=== PATIENT | male | born 1965 | race Caucasian/White ===

== ENCOUNTER 2018-07-16 02:35 | Emergency (ER) | payer OTHER, SELFPAY ==
[2018-07-16 02:39] VITALS: BP 146/69; PULSE 71; RESP 16; TEMP 36.2; O2SAT 100
--- NOTE | 2018-07-16 02:53 | ED.GENADUL_ITS ---
Discharge Plan Disposition Patient Disposition: HOME Condition: Good Discharge Details Chief Complaint: Urinary Clinical Impression: Right distal ureteral calculus Primary Care Provider: Marry Perez ED Provider: Richard Reinoso Tennyson Meds and New Rx's Prescriptions: New hydrocodone-acetaminophen 5-325 mg tablet 1 tab PO Q4H PRN (Reason: pain) Qty: 10 RF: 0 Continued atorvastatin 40 mg Tablet 1 mg PO HS RF: 0 aspirin [Aspir-81] 81 mg Tablet,Delayed Release (Dr/Ec) 81 mg PO DAILY RF: 0 tramadol 50 mg Tablet 50 mg PO DAILY RF: 0 Vitamin B-12 50 mcg Tablet 50 mcg PO DAILY RF: 0 tamsulosin [Flomax] 0.4 mg Capsule RF: 0 metformin 1,000 mg Tablet 1,000 mg PO BID RF: 0 lisinopril 5 mg Tablet 5 mg PO BID RF: 0 Discharge Instructions Instructions: Ureteral Stones (ED) Additional Instructions: You do have a kidney stone on the right side. It is small enough that it should pass on its own. Strain your urine over the weekend so you may catch the stone when you pass it. You may use ibuprofen for pain. You may also use your Ultram if you need to. If neither works use the hydrocodone/acetaminophen. Do not take Ultram while taking hydrocodone/acetaminophen. Follow-up with primary care next week if you are still having symptoms. Return to the emergency department if you develop fever, uncontrolled pain, persistent vomiting. Referrals: Primary Care Provider [Outside] Medical Decision Making Bladder scan is less than 100. Patient still feels like he needs to urinate. He has acute onset of right flank pain radiating into the buttock and testicle. I suspect this is kidney stone. He is quite uncomfortable. Will establish a line and start fluids. Will check laboratory studies. We will treat with Toradol and morphine. Will obtain CT stone study. 4:30 - Patient laboratory studies for the most part unremarkable. His white count is minimally elevated. His hemoglobin is slightly low. Chemistries are fine other than glucose being high. CT scan was obtained and does show a 2 mm stone at the UVJ with some hydronephrosis. Patient is feeling much better after medications. We will plan a second dose of morphine and discharge home with Vicodin and Motrin. He is already on Flomax. Hopefully will pass the stone in the next few days as it is only 2 mm. Pending urinalysis as he has been unable to urinate as of yet. 5:30 -urinalysis with blood only. There are white cells present but there are also many epithelial cells. I do not suspect infection. Will discharge home to follow-up with primary care next week if he has not passed the stone over the weekend. Return to ED if he develops fever, uncontrolled pain, persistent vomiting. I did review the patient in the [place] prescription monitoring site. [facility] He receives no other narcotic medications. Will instruct patient not to use tramadol if he requires Vicodin for the kidney stone. Tramadol is for his chronic back pain. We did discuss narcotic use. State information sheet given. Informed consent signed. HPI General Mode of arrival: ambulatory . Date/Time Provider Initiated Documentation: 07/16/18 02:49 . Limitations to Documentation: no limitations . Information obtained by: patient . HPI Narrative: Patient presents to ED with right flank pain that radiates into the right buttock and testicle. He has had chronic right-sided back pain for years. This pain seems different. It is severe. He describes it as feeling like his side is going to explode. He has urinary urgency and frequency but is unable to produce significant amount of urine. He has had nausea and vomiting. He has had some loose stool. He has not noticed blood in his urine. He has had no fevers or chills. He denies previous history of kidney stones. He has been unable to sleep all night and finally comes in for evaluation this morning. Related Data Home Medications Medication Instructions Recorded Confirmed Vitamin B-12 50 mcg PO DAILY 07/16/18 07/16/18 aspirin [Aspir-81] 81 mg PO DAILY 07/16/18 07/16/18 atorvastatin 1 mg PO HS 07/16/18 07/16/18 hydrocodone-acetaminophen 1 tab PO Q4H PRN #10 tab 07/16/18 lisinopril 5 mg PO BID 07/16/18 07/16/18 metformin 1,000 mg PO BID 07/16/18 07/16/18 tamsulosin [Flomax] 07/16/18 tramadol 50 mg PO DAILY 07/16/18 07/16/18 Previous Rx's Medication Instructions Recorded hydrocodone-acetaminophen 1 tab PO Q4H PRN #10 tab 07/16/18 Allergies Allergy/AdvReac Type Severity Reaction Status Date / Time atropine [From Simetyl] Allergy Intermediate Psychosis Unverified 07/16/18 02:44 belladonna alkaloids Allergy Intermediate Psychosis Unverified 07/16/18 02:44 [From Simetyl] hyoscyamine [From Simetyl] Allergy Intermediate Psychosis Unverified 07/16/18 02:44 loratadine [From Tavist ND] Allergy Intermediate Psychosis Unverified 07/16/18 02:44 scopolamine [From Simetyl] Allergy Intermediate Psychosis Unverified 07/16/18 02:44 simethicone [From Simetyl] Allergy Intermediate Psychosis Unverified 07/16/18 02:44 General Stated Complaint: Urinary SAUL: 3 Review of Systems Review of Systems 01/31 Review of Systems completed and is negative except as stated above in HPI (Systems reviewed: Const, Eyes, ENT, Resp, CV, GI, , MSK, Skin, Neuro) [facility] Medical History Diabetes (Chronic) High cholesterol (Chronic) Surgical History History of left knee replacement (Acute) Social History Smoking/Tobacco Use Status: Never Additional Social history: pt is not alone to assess privately Exam Narrative Exam Narrative: 1. Const: WDWN male, uncomfortable lying on stretcher. 2. Eyes: No conjunctival injection or scleral icterus. 3. ENT: NC/AT. No facial swelling or tenderness. Mucous membranes moist. 4. Neck: Supple without adenopathy. Trachea midline. 5. CVS: +S1/S2, No murmurs or gallops. 6. RESP: Unlabored respiratory effort. Clear to auscultation bilaterally. No wheezes rales or rhonchi 7. GI: Soft, NT/ND, No hepatosplenomegaly. No guarding or rebound. 8. MSK: No C/C/E present. No deformity or tenderness noted. 9. Skin: Warm, Dry. 10. Neuro: A&O x3. gift officer II-XII grossly intact. Sensation grossly intact, no focal neurologic deficits. 5/5 strength and normal sensation in LE. 11. : No CVAT. No hernia. No testicular swelling or tenderness. Course Vital Signs Temperature 97.1 F L 07/16/18 02:39 Pulse 71 07/16/18 02:39 Respiratory Rate 16 07/16/18 02:39 Blood Pressure 146/69 H 07/16/18 02:39 Pulse Oximetry 100 07/16/18 02:39 Temperature 97.1 F L 07/16/18 02:39 Temperature Source Skin 07/16/18 02:39 Pulse 71 07/16/18 02:39 Respiratory Rate 16 07/16/18 02:39 Respiratory Effort Non-Labored 07/16/18 02:42 Blood Pressure 146/69 H 07/16/18 02:39 Pulse Oximetry 100 07/16/18 02:39 Pain Level 10 07/16/18 02:48
[2018-07-16] MEDS: Ketorolac 30 MG/ML VIAL IVP (03:26)
[2018-07-16] MEDS: Normal Saline 1,000 ML 1000 ML IV (03:26)
[2018-07-16 03:37] LABS: Abs Immature Grans 0.03 k/cumm (0.0-0.09); Absolute Basophil Count 0.02 k/cumm (0.0-0.2); Absolute Eosinophil Count 0.05 k/cumm (0.0-0.7); Absolute Lymphocyte Count 1.42 k/cumm (1.2-3.4); Absolute Monocyte Count 0.46 k/cumm (0.11-0.7); Basophils % 0.2; Eosinophils % 0.4; HCT 39.9 % (40.0-50.0); HGB 13.3 g/dL (13.5-17.5); Immature Grans % 0.3; Lymphocytes % 12.1; Mean Corp. HGB Concentration 33.3 g/dL (32.0-36.0); Mean Corpuscular Hemoglobin 26.5 pg (27.0-33.0); Mean Corpuscular Volume 79.5 fL (80-95); Mean Platelet Volume 11.3 fL (8.0-11.0); Monocytes % 3.9; Neutrophils % 83.1; Platelet Count 239 x1000/uL (130-400); RBC 5.02 m/cumm (4.50-6.00); RBC Distribution Width 13.9 % (11.8-14.1); White Blood Cell Count 11.75 k/cumm (4.4-10.8)
--- NOTE | 2018-07-16 03:40 | DI.CT_ITS ---
SYMPTOMS/DIAGNOSIS: RT FLANK PAIN CT SCAN OF THE ABDOMEN AND PELVIS: Renal colic CT was performed according to protocol. There is a 4 mm stone at the right ureterovesical junction causing mild hydronephrosis. No evidence of nephrolithiasis is present. The urinary bladder is intact. The reproductive organs are unremarkable. No other acute abdominal or pelvic organ abnormality is identified. The bones show degenerative changes. IMPRESSION: 4 mm right UVJ stone causing mild hydronephrosis.
[2018-07-16 03:42] LABS: Absolute Neutrophil Count 9.76 k/cumm (1.2-6.7)
[2018-07-16] MEDS: Ondansetron 4 MG/2 ML VIAL IVP (03:50)
[2018-07-16] MEDS: MORPHine 10 MG/ML VIAL 5 MG IVP ×2 (03:53→05:02)
[2018-07-16 03:54] LABS: Anion Gap 12.5 mmol/L (3-11); BUN 14 mg/dL (7-18); CO2 24.5 mmol/L (21.0-32.0); CREATININE 1.35 mg/dL (0.70-1.30); Calcium 9.1 mg/dL (8.5-10.1); Chloride 100 mmol/L (98-107); Estimated GFR 54.87 (mL/min/1.73m2); Glucose 159 mg/dL (70-100); Potassium 4.3 mmol/L (3.5-5.1); Sodium 137 mmol/L (136-145)
--- NOTE | 2018-07-16 04:19 | DI.VRAD_ITS ---
EXAM: CT Abdomen and Pelvis Without Contrast EXAM DATE/TIME: 07/16/2018 3:08 AM CLINICAL HISTORY: 53 years old, male; Pain; Abdominal pain; Flank; Right TECHNIQUE: Imaging protocol: Axial computed tomography images of the abdomen and pelvis without contrast. Coronal and sagittal reformatted images were created and reviewed. Radiation optimization: All CT scans at this facility use at least one of these dose optimization techniques: automated exposure control; mA and/or kV adjustment per patient size (includes targeted exams where dose is matched to clinical indication); or iterative reconstruction. COMPARISON: No relevant prior studies available. FINDINGS: Lower thorax: No acute findings. ABDOMEN: Liver: Hepatic steatosis. Gallbladder and bile ducts: Normal. No calcified stones. No ductal dilation. Pancreas: Normal. No ductal dilation. Spleen: Normal. No splenomegaly. Adrenals: Normal. No mass. Kidneys and ureters: 2 mm calculus right distal ureter with mild right hydroureteronephrosis. Stomach and bowel: Normal. No obstruction. No mucosal thickening. Appendix: No evidence of appendicitis. PELVIS: Bladder: Unremarkable as visualized. Reproductive: Unremarkable as visualized. ABDOMEN and PELVIS: Intraperitoneal space: Normal. No free air. No significant fluid collection. Bones/joints: No acute fracture. No dislocation. Soft tissues: Unremarkable. Vasculature: Normal. No abdominal aortic aneurysm. Lymph nodes: Normal. No enlarged lymph nodes. IMPRESSION: 2 mm calculus right distal ureter with mild right hydroureteronephrosis. Dictated and Authenticated by: Reji Ibarra MD. Ordering:ROMEL Ramos MD
[2018-07-16 04:51] LABS: Bilirubin Negative (Negative); Blood Large (Negative); Clarity Clear; Glucose Negative (Negative); Ketones Trace mg/dL (Negative); Leukocyte Esterase Small (Negative); Nitrite Negative (Negative); Specific Gravity >= 1.030 (1.005-1.025); Urobilinogen 0.2 EU/dL (Up TO 0.2); pH 5.5 (5-8)
[2018-07-16 05:00] LABS: Bacteria Many HPF (Negative); Crystals Negative HPF (Negative); Epithelial Cells Many HPF (Negative); Mucus Heavy (Negative); RBC >50 (0-2)
[2018-07-16 05:01] LABS: C & S Indicated? No/Sq. Contamination; Casts 10-20 Hyaline LPF (Negative)
[2018-07-16] MEDS: Normal Saline Flush 10 ML SYR IVP (05:03)
[2018-07-16 05:06] VITALS: BP 129/63; PULSE 70; RESP 16; O2SAT 99
[2018-07-16] MEDS: HYDROcodone 5/Acetaminophen 325 TAB (05:45)
[2018-07-16 05:46] VITALS: BP 136/76; PULSE 68; RESP 16; O2SAT 99
[2018-07-16] MEDS: HYDROcodone 5/Acetaminophen 325 TAB PO (05:46)
== END 2018-07-16 05:56 | disposition home or self-care (01) ==
PROVIDERS: Emergency Provider Emergency Medicine
DX: N20.2 Calculus of kidney with calculus of ureter (principal)
CPT/HCPCS: 80048; 96361; 96374; 96375; 99284; 74176; 81003; 81015; 85025; J1885; J2270; J2405

== ENCOUNTER 2019-01-20 06:57 | Day surgery (SDC) | payer OTHER, SELFPAY ==
[2019-01-20 07:23] VITALS: BP 138/81; PULSE 69; RESP 16; TEMP 35.9; O2SAT 100
[2019-01-20] MEDS: Lactated Ringers 1,000 ML 80 ML IV (07:43)
--- NOTE | 2019-01-20 09:50 | BOWEL_PTH ---
PATIENT: Richard Benoit LOC: [facility] U#:[id number] AGE/SX: 53/M ROOM: RE01/20/[address]: Rae Corral MD : 1965 BED: DIS: 01/20/2019 SPEC #: [id number] RECD: 01/20/19 12:42 STATUS: LUCIANA REQ #: [id number] MAT: 01/20/19 09:[address]: Rae Corral DEPT: Surgical Specimen RECD BY: Petty Lorenzo ENTERED: 01/20/19 12:44 SP TYPE: Bowel OTHR DR: Marry Perez Tissues: 1 - BIOPSY BOWEL Procedures: GROSS AND MICRO LEVEL 4 Comments: [id number]
--- NOTE | 2019-01-20 09:54 | W.PM.DSUDISC ---
Discharge Plan Disposition Patient Disposition: HOME Condition: Good Discharge Details Reason For Visit: Colonoscopy Attending Provider: Rae Corral Primary Care Provider: Marry Perez Home Meds and New Rx's Prescriptions: Continued amlodipine 10 mg tablet 10 mg PO DAILY RF: 0 clobetasol 0.05 % solution 1 applic TP DAILY RF: 0 trazodone 100 mg tablet 100 mg PO DAILY RF: 0 ibuprofen 800 mg tablet 800 mg PO TID RF: 0 atorvastatin 40 mg Tablet 1 mg PO HS RF: 0 aspirin [Aspir-81] 81 mg Tablet,Delayed Release (Dr/Ec) 81 mg PO DAILY RF: 0 Vitamin B-12 50 mcg Tablet 50 mcg PO DAILY RF: 0 tamsulosin [Flomax] 0.4 mg Capsule 0.4 mg PO HS RF: 0 metformin 1,000 mg Tablet 1,000 mg PO BID RF: 0 lisinopril 5 mg Tablet 5 mg PO BID RF: 0 Discharge Instructions Additional Instructions: Findings: One small polyp was removed from the rectum. My office will contact you with biopsy results. Follow up: If the polyp is adenomatous, you will need a colonoscopy again in 5 years. Please call if you develop: fevers >101.5 Nausea or Vomiting Abdominal pain that is not transient DAY SURGERY UNIT POST COLONOSCOPY INSTRUCTIONS 1. Because there will be medication in your system for the next 24 hours, you may feel a little sleepy. Your coordination will be affected. Therefore: a. Do not drive or operate dangerous equipment for 24 hours. b. Do not drink alcohol beverages for 24 hours (not even beer). c. Plan to go home and rest for the day. 2. Generally there are no restrictions on your activity after a day or so has gone by, but you may feel a bit fatigued for a few days. 3 After you arrive home you may have a light meal and return to a normal diet as you can tolerate it without feeling sick to your stomach. 4. After surgery, you may feel pain or discomfort. This should be only transient, but if it persists please contact your doctor. 5. If there are any questions regarding the findings of your procedure, please feel free to contact your doctor. 6. If you are unable to contact your doctor with a problem, contact the hospital at [phone]. 7. Continue all your regular medications unless directed otherwise. I understand the above instructions and have no questions. Signature of Patient or Responsible Adult Escort Date/Time Name of Responsible Adult Escort Signature of Nurse Date/Time Activity:: Activity as Tolerated Diet:: As Tolerated Discharge Orders Discharge Orders: Discharge Order (Routine); Ordered 01/20/19 Ordered By: Rae Corral DS: Diagnosis Discharge Diagnosis (1) Rectal polyp: Status: Acute
[2019-01-20 10:23] VITALS: BP 133/80; PULSE 62; RESP 18; TEMP 36.2; O2SAT 100
--- NOTE | 2019-01-20 14:15 | COLE_ITS ---
JANUARY 20, 2019 PREOPERATIVE DIAGNOSIS: Screening. POSTOPERATIVE DIAGNOSIS: Rectal polyp. OPERATION: Colonoscopy with cold forceps polypectomy. ANESTHESIA: General INDICATIONS: This is a 53-year-old man who present for routine colon screening. His last procedure was a flexible sigmoidoscopy in 2013 which was normal. He is asymptomatic and has no family history of colon cancer. PROCEDURE: He was placed in the left Acuña position. Propofol was titrated to sedation. Digital re ctal examination revealed no abnormalities. The scope was advanced to the cecum without difficulty. His prep was excellent. The distal ileum wa s intubated and was normal. The scope was slowly withdrawn with no abnormalities seen with in the as cending, transverse, descending or sigmoid colon. The rectum revealed a diminutive polyp that was re moved completely with the cold forceps. Retroflexed view showed no other abnormalities. If the rectal polyp is adenomatous he will need a follow-up colonoscopy again in five years.
== END 2019-01-20 11:13 | disposition home or self-care (01) ==
PROVIDERS: Visit Provider Surgery
PROC: 0DJD8ZZ Inspection of Lower Intestinal Tract, Via Natural or Artificial Opening Endoscopic (ICD-10-PCS; CPT 45378; principal; 2019-01-20 09:00)
DX: Z12.11 Encounter for screening for malignant neoplasm of colon (principal); K62.1 Rectal polyp; E11.9 Type 2 diabetes mellitus without complications; Z79.84 Long term (current) use of oral hypoglycemic drugs; G47.33 Obstructive sleep apnea (adult) (pediatric)
CPT/HCPCS: 45380; 88305

== ENCOUNTER 2020-07-08 11:41 | Emergency (ER) | payer OTHER, SELFPAY ==
[2020-07-08 11:48] VITALS: BP 151/81; PULSE 80; RESP 16; TEMP 36.7; O2SAT 100
--- NOTE | 2020-07-08 12:00 | ED.GENADUL_ITS ---
Discharge Plan Disposition Patient Disposition: HOME Condition: Improving Discharge Details Clinical Impression: Acute conjunctivitis of right eye Primary Care Provider: Brittany Hendricks ED Provider: Chilango Terrazas Home Meds and New Rx's Prescriptions: Continued amlodipine 10 mg tablet 10 mg PO DAILY RF: 0 clobetasol 0.05 % solution 1 applic TP DAILY RF: 0 trazodone 100 mg tablet 100 mg PO DAILY RF: 0 ibuprofen 800 mg tablet 800 mg PO TID RF: 0 gabapentin 100 mg Tablet 100 mg PO .QHS RF: 0 atorvastatin 40 mg Tablet 1 mg PO HS RF: 0 aspirin [Aspir-81] 81 mg Tablet,Delayed Release (Dr/Ec) 81 mg PO DAILY RF: 0 Vitamin B-12 50 mcg Tablet 50 mcg PO DAILY RF: 0 tamsulosin [Flomax] 0.4 mg Capsule 0.4 mg PO HS RF: 0 metformin 1,000 mg Tablet 1,000 mg PO BID RF: 0 lisinopril 5 mg Tablet 5 mg PO BID RF: 0 Discharge Instructions Instructions: Conjunctivitis (ED) Additional Instructions: Place the erythromycin ointment on the right lower lid 4 times daily for the next 5 to 6 days time. We will ask our care management team to arrange a follow-up for you at the local [facility]. Return develop vomiting, change to vision, or any other acute concerns. Medical Decision Making 55-year-old male presents with right eye injection, crusting of the lid in the morning and tearing irritation over what he says is weeks time. He does not wear contacts habitually. He has not had a foreign body exposure. Vital signs are stable, the right eye has temporal aspect injection with slight chemosis. No Antony sign in the fluorescein exam is otherwise unremarkable. May be allergic, but feel I must first treat for bacterial conjunctivitis and will place him on erythromycin. Given the longevity of his complaint, we will asked that he follow-up with [facility] and care management will arrange a an appointment time. HPI General Mode of arrival: ambulatory . Date/Time Provider Initiated Documentation: 07/08/20 11:43 . Limitations to Documentation: no limitations . Information obtained by: patient . History of Present Illness 55 year old M presents to the emergency department with the chief complaint of Right eye tearing and discharge, described as moderate, Quality is described as dull, and is localized to the eyes and right. Patient reports no radiation. Patient started experiencing this day(s) and it has been intermittent. No relieving factors improve symptom(s), No exacerbating factors reported . Patient notes denies fever/chills. Patient did receive the following treatments prior to arrival, none Related Data Home Medications Medication Instructions Recorded Confirmed Vitamin B-12 50 mcg PO DAILY 07/16/18 07/08/20 aspirin [Aspir-81] 81 mg PO DAILY 07/16/18 07/08/20 atorvastatin 1 mg PO HS 07/16/18 07/08/20 lisinopril 5 mg PO BID 07/16/18 07/08/20 metformin 1,000 mg PO BID 07/16/18 07/08/20 tamsulosin [Flomax] 0.4 mg PO HS 07/16/18 07/08/20 amlodipine 10 mg tablet 10 mg PO DAILY 09/14/18 07/08/20 clobetasol 0.05 % scalp solution 1 applic TP DAILY 09/14/18 07/08/20 trazodone 100 mg tablet 100 mg PO DAILY 09/14/18 07/08/20 ibuprofen 800 mg tablet 800 mg PO TID 12/13/18 07/08/20 gabapentin 100 mg PO .QHS 07/08/20 07/08/20 Allergies Allergy/AdvReac Type Severity Reaction Status Date / Time atropine [From Simetyl] Allergy Intermediate Psychosis Unverified 07/08/20 11:51 belladonna alkaloids Allergy Intermediate Psychosis Unverified 07/08/20 11:51 [From Simetyl] hyoscyamine [From Simetyl] Allergy Intermediate Psychosis Unverified 07/08/20 11:51 loratadine [From Tavist ND] Allergy Intermediate Psychosis Unverified 07/08/20 11:51 scopolamine [From Simetyl] Allergy Intermediate Psychosis Unverified 07/08/20 11:51 simethicone [From Simetyl] Allergy Intermediate Psychosis Unverified 07/08/20 11:51 clemastine [From Tavist] Allergy Verified 07/08/20 11:51 pseudoephedrine [From Tavist] Allergy Verified 07/08/20 11:51 General Stated Complaint: EyeProblem SAUL: 3 Review of Systems Narrative: No vomiting, no change to vision, no eye pain, no known exposure to foreign object. Patient has medically been well. No changes to medications. 4 systems reviewed and otherwise negative. [facility] Medical History Anisocoria BPH (benign prostatic hyperplasia) Diabetes High cholesterol Hyperlipidemia Major depressive disorder, recurrent episode with anxious distress SLOAN (obstructive sleep apnea) Steatosis of liver Surgical History (Updated 01/20/19 @ 09:54 by Rae Corral MD) History of arthroscopic knee surgery History of left knee replacement S/P colonoscopy with polypectomy 01/20/19 Social History Smoking/Tobacco Use Status: Never Smoking risk assessment performed?: Yes Alcohol Intake: current Alcohol Intake frequency: a few times a month Alcohol type: wine and other Drug use: Occasionally Substance use type: marijuana Details: alcohol 2 weeks ago marijuana 2 weeks ago vapes Do you feel safe at home: Yes Do you feel safe in your relationship?: Yes Exam Narrative Exam Narrative: GEN: awake, alert, oriented 3. Pleasant, well groomed, interactive. HEAD: Normocephalic, atraumatic ENT: Mucous membranes moist EYES: PERRL, EOMI, right eye injected primarily on temporal side with slight chemosis, no Antony sign, no evidence of foreign body with fluorescein exam. NECK: Full ROM, no EVELIN, no menigismus CHEST/RESP: Nontender, clear to auscultation bilateral, no wheeze/rhonchi/rales CARDIOVASCULAR: RRR, no murmur, rub darvin. 2+ Rad pulse bilateral Neuro: Grossly normal neurologic exam, conversant, interactive. Psych: Speech fluent, thoughts congruent, affect normal Course Vital Signs Vital signs: Vital Signs Temperature 36.7 C 07/08/20 11:48 Pulse 80 07/08/20 11:48 Respiratory Rate 16 07/08/20 11:48 Blood Pressure 151/81 H 07/08/20 11:48 Pulse Oximetry 100 07/08/20 11:48 Temperature 36.7 C 07/08/20 11:48 Temperature Source Skin 07/08/20 11:48 Pulse 80 07/08/20 11:48 Respiratory Rate 16 07/08/20 11:48 Respiratory Effort Non-Labored 07/08/20 11:48 Blood Pressure 151/81 H 07/08/20 11:48 Blood Pressure Position Supine 07/08/20 11:48 Pulse Oximetry 100 07/08/20 11:48 Oxygen Delivery Method Room Air 07/08/20 11:48 Oxygen Flow Rate 0 07/08/20 11:48 Pain Level 6 07/08/20 11:48
[2020-07-08] MEDS: Fluorescein STRIPS 100/BOX 1 MG OP (12:05)
[2020-07-08] MEDS: Balanced Salt Solution 15 ML BTL OP (12:05)
[2020-07-08] MEDS: Erythromycin Ophth Oint 3.5 GM TUBE OP (12:05)
--- NOTE | 2020-07-09 10:06 | NUR.NOTE ---
TRIED MULTIPLE TIMES TO FAX REFERRAL AND NOTE TO [facility] WITH NO ANSWER ON CONFIRMATION. I CALLED M[facility]IN AND GAVE PATIENT NAME/PHONE NUMBER AND REASON FOR REFERRAL TO [facility]. SHE SAID SHE WOULD GIVE PATIENT A CALL AND SET UP APPT DATE AND TIME.Nursing Note:
== END 2020-07-08 12:20 | disposition home or self-care (01) ==
PROVIDERS: Emergency Provider Emergency Medicine; PCP Nurse Practitioner Primary Care
DX: H10.31 Unspecified acute conjunctivitis, right eye (principal)
CPT/HCPCS: 99283

== ENCOUNTER 2021-05-03 14:33 | Emergency (ER) | payer OTHER, SELFPAY ==
--- NOTE | 2021-05-03 14:45 | DI.RAD_ITS ---
Exam(s) XR ANKLE RT COMPLETE EXAM: XR ANKLE RT COMPLETE CLINICAL HISTORY: right medial ankle pain, r/o subacute fx. TECHNIQUE: 2D digital imaging was performed. COMPARISON: No exams were available for comparison FINDINGS: There is no evidence of fracture or widening of the mortise. Talar dome appears unremarkable. There is no prominent soft tissue swelling. Multilevel calcification is noted in the plantar fascia. There is no inferior calcaneal spur. IMPRESSION: No fractures or osteochondral defects. Plantar fascia calcification noted. DATA REPOSITORY: RADIATION DOSE DELIVERED:
[2021-05-03 14:47] VITALS: BP 134/76; PULSE 83; RESP 16; TEMP 37.1; O2SAT 98
--- NOTE | 2021-05-03 15:22 | W.ED.GENAD ---
Discharge Plan Disposition Patient Disposition: HOME Condition: Good Discharge Details Clinical Impression: Right ankle sprain Primary Care Provider: Brittany Hendricks ED Provider: Boris Marshall Home Meds and New Rx's Prescriptions: Continued amlodipine 10 mg tablet 10 mg PO DAILY RF: 0 clobetasol 0.05 % solution 1 applic TP DAILY RF: 0 trazodone 100 mg tablet 100 mg PO DAILY RF: 0 ibuprofen 800 mg tablet 800 mg PO TID RF: 0 gabapentin 100 mg Tablet 100 mg PO .QHS RF: 0 atorvastatin 40 mg Tablet 1 mg PO HS RF: 0 aspirin [Aspir-81] 81 mg Tablet,Delayed Release (Dr/Ec) 81 mg PO DAILY RF: 0 Vitamin B-12 50 mcg Tablet 50 mcg PO DAILY RF: 0 tamsulosin [Flomax] 0.4 mg Capsule 0.4 mg PO HS RF: 0 metformin 1,000 mg Tablet 1,000 mg PO BID RF: 0 lisinopril 5 mg Tablet 5 mg PO BID RF: 0 Discharge Instructions Instructions: Ankle Sprain (ED) Additional Instructions: At this time your x-ray shows no evidence of fracture. I suspect you have incurred a mild sprain to the aspect in your ankle. Please wear the walking boot for the next 1 to 2 weeks. You can take 500 to 1000 mg of Tylenol every 6 hours to help with the pain. Please ice it as often as you can. If your symptoms do not improve all and persist or worsen after 1 to 2 weeks of this therapy then you may need reevaluation by an commodity management specialist. Please follow-up closely with your family doctor at the [facility]. If you notice any worsening of your symptoms, or any new symptoms such as vomiting, diarrhea, fever, chills, shortness of breath, chest pain, numbness, weakness, or fainting , please return immediately to the emergency department for reevaluation. Please follow up with your primary care provider as soon as possible for reassessment and reevaluation. As always, it was a pleasure participating in your medical care today. Referrals: Brittany Hendricks [Primary Care Provider] - Medical Decision Making This is a 55-year-old male with a past medical history of gout, high cholesterol, diabetes, obstructive sleep apnea, who presents today for right ankle pain. Patient admits to pain on the medial aspect of his right ankle for the last 3 to 4 days. He states that he slept on it in a weird position 4 days ago which began the pain. Patient takes ibuprofen for other etiologies and states that this slightly improves it. Pain is made worse with movement and weightbearing. He denies any fever or chills. He denies any trauma. He denies any new numbness or tingling. No other complaints at this time. No other modifying factors. Exam demonstrates minimal swelling over the medial aspect of the right ankle. Mild pain with inversion/supination as well as dorsiflexion. No pain throughout the rest of the ankle. Ankle otherwise stable. No redness or crepitus to suggest cellulitis infection or necrotizing fasciitis. X-ray results demonstrate no evidence of acute process or fracture. At this time I suspect the patient has a mild joint effusion and mild sprain, likely worsened from chronic arthritis. Symptoms appear inconsistent with significant gout or septic joint at this time. Will give walking boot, recommend decreased weightbearing, ice, and Tylenol in addition to his regular Motrin. Recommend orthopedic follow-up if his symptoms persist in spite of this after 1 to 2 weeks of treatment. Discussed red flags for which to return. I have extensively reviewed the treatment plan and discharge instructions with the patient. I have addressed all patient concerns at this time. The patient was made aware of what symptoms to monitor for that would warrant a return to the emergency department. Discussed the plan with the patient, they demonstrate verbal understanding and agreement with our assessment and plan at this time. The documentation in this chart was dictated using [employer] dictation software. Please excuse any dictation errors. FINDINGS: There is no evidence of fracture or widening of the mortise. Talar dome appears unremarkable. There is no prominent soft tissue swelling. Multilevel calcification is noted in the plantar fascia. There is no inferior calcaneal spur. IMPRESSION: No fractures or osteochondral defects. Plantar fascia calcification noted. HPI General Date/Time Provider Initiated Documentation: 05/03/21 14:47. HPI Narrative: This is a 55-year-old male with a past medical history of gout, high cholesterol, diabetes, obstructive sleep apnea, who presents today for right ankle pain. Patient admits to pain on the medial aspect of his right ankle for the last 3 to 4 days. He states that he slept on it in a weird position 4 days ago which began the pain. Patient takes ibuprofen for other etiologies and states that this slightly improves it. Pain is made worse with movement and weightbearing. He denies any fever or chills. He denies any trauma. He denies any new numbness or tingling. No other complaints at this time. No other modifying factors. Related Data Home Medications Medication Instructions Recorded Confirmed Vitamin B-12 50 mcg PO DAILY 07/16/18 07/08/20 aspirin [Aspir-81] 81 mg PO DAILY 07/16/18 07/08/20 atorvastatin 1 mg PO HS 07/16/18 07/08/20 lisinopril 5 mg PO BID 07/16/18 07/08/20 metformin 1,000 mg PO BID 07/16/18 07/08/20 tamsulosin [Flomax] 0.4 mg PO HS 07/16/18 07/08/20 amlodipine 10 mg tablet 10 mg PO DAILY 09/14/18 07/08/20 clobetasol 0.05 % scalp solution 1 applic TP DAILY 09/14/18 07/08/20 trazodone 100 mg tablet 100 mg PO DAILY 09/14/18 07/08/20 ibuprofen 800 mg tablet 800 mg PO TID 12/13/18 07/08/20 gabapentin 100 mg PO .QHS 07/08/20 07/08/20 Allergies Allergy/AdvReac Type Severity Reaction Status Date / Time atropine [From Simetyl] Allergy Intermediate Psychosis Unverified 05/03/21 14:56 belladonna alkaloids Allergy Intermediate Psychosis Unverified 05/03/21 14:56 [From Simetyl] hyoscyamine [From Simetyl] Allergy Intermediate Psychosis Unverified 05/03/21 14:56 loratadine [From Tavist ND] Allergy Intermediate Psychosis Unverified 05/03/21 14:56 scopolamine [From Simetyl] Allergy Intermediate Psychosis Unverified 05/03/21 14:56 simethicone [From Simetyl] Allergy Intermediate Psychosis Unverified 05/03/21 14:56 clemastine [From Tavist] Allergy Verified 05/03/21 14:56 pseudoephedrine [From Tavist] Allergy Verified 05/03/21 14:56 General Stated Complaint: Orthopedic SAUL: 3 Review of Systems All systems reviewed & are unremarkable except as noted in HPI and below PFSH All Active Problems Acute conjunctivitis of right eye (Acute) Right ankle sprain (Acute) Rectal polyp (Acute) Medical History Anisocoria BPH (benign prostatic hyperplasia) Diabetes High cholesterol Hyperlipidemia Major depressive disorder, recurrent episode with anxious distress SLOAN (obstructive sleep apnea) Steatosis of liver Surgical History History of arthroscopic knee surgery History of left knee replacement S/P colonoscopy with polypectomy 01/20/19 Social History Smoking/Tobacco Use Status: Never Smoking risk assessment performed?: Yes Alcohol Intake: current Alcohol Intake frequency: a few times a month Alcohol type: wine and other Drug use: Occasionally Substance use type: marijuana Details: alcohol 2 weeks ago marijuana 2 weeks ago vapes Do you feel safe at home: Yes Do you feel safe in your relationship?: Yes Exam Narrative Exam Narrative: 1.Const: Well-nourished, Well-developed, appearing stated age 2.Eyes: PERRL, no conjunctival injection, and symmetrical lids. 3.ENT: Atraumatic external nose and ears. Moist MM. Neck: Symmetric, trachea midline, No thyromegaly. 4.CVS: +S1/S2, No murmurs or gallops. Peripheral pulses 2+ and equal in all extremities. Brisk capillary refill in all extremities. 5.RESP: Unlabored respiratory effort. Clear to auscultation bilaterally. No wheezes rales or rhonchi 6.GI: Soft, Nontender/Nondistended, No hepatosplenomegaly. No guarding or rebound. 7.MSK: Normocephalic/Atraumatic, Extremities w/o deformity patient's right ankle demonstrates minimal swelling at the medial aspect over the distal tibia over the medial malleolus. No tenderness over the lateral malleolus or the rest of the ankle. Good sensation, normal capillary refill, good pulses, no crepitus, pain out of proportion, or sensory changes. No pain with palpation of the medial ankle however the patient does have mild pain with significant dorsiflexion as well as supination/inversion of the ankle. 8.Skin: Warm, Dry. No rashes or lesions. No significant redness, warmth, crepitus, or signs of cellulitis. 9.Neuro: editor at large II-XII grossly intact. Sensation grossly intact, no focal neurologic deficits. 10.Psych: (AAO) x3. Appropriate mood and affect Course Vital Signs Vital signs: Vital Signs Temperature 37.1 C 05/03/21 14:47 Pulse 83 05/03/21 14:47 Respiratory Rate 16 05/03/21 14:47 Blood Pressure 134/76 05/03/21 14:47 Pulse Oximetry 98 05/03/21 14:47 Temperature 37.1 C 05/03/21 14:47 Temperature Source Skin 05/03/21 14:47 Pulse 83 05/03/21 14:47 Respiratory Rate 16 05/03/21 14:47 Blood Pressure 134/76 05/03/21 14:47 Blood Pressure Position Sitting 05/03/21 14:47 Pulse Oximetry 98 05/03/21 14:47 Oxygen Delivery Method Room Air 05/03/21 14:47 Oxygen Flow Rate 0 05/03/21 14:47 Pain Level 7 05/03/21 14:47
[2021-05-03] MEDS: Acetaminophen 500 MG TAB 1000 MG PO (15:26)
== END 2021-05-03 15:39 | disposition home or self-care (01) ==
PROVIDERS: Emergency Provider Student in an Organized Health Care Education/Training Program; PCP Nurse Practitioner Primary Care
DX: S93.491A Sprain of other ligament of right ankle, initial encounter (principal); X50.1XXA Overexertion from prolonged static or awkward postures, initial encounter
CPT/HCPCS: 29515; 99283; 73610

== ENCOUNTER 2021-10-30 19:48 | Emergency (ER) | payer OTHER, SELFPAY ==
[2021-10-30 19:54] VITALS: BP 160/90; PULSE 95; RESP 20; TEMP 36.6; O2SAT 99
--- NOTE | 2021-10-30 20:00 | DI.RAD_ITS ---
Exam(s) XR PORTABLE CHEST AP EXAM: XR PORTABLE CHEST AP CLINICAL HISTORY: cough TECHNIQUE: 2D digital imaging was performed of the chest. One image was obtained. An AP view was ob tained. COMPARISON: No exams were available for comparison FINDINGS: MEDIASTINUM: Normal. HEART: Normal. PULMONARY VASCULATURE: Normal. LUNGS: Clear. PLEURAL SPACE: No pleural effusion or pneumothorax. BONE:Within normal limits for the patient's age. OTHER FINDINGS:Normal. IMPRESSION: No acute pulmonary findings. DATA REPOSITORY: RADIATION DOSE DELIVERED:
--- NOTE | 2021-10-30 20:00 | RT.EKG_ITS ---
APPROVED REPORT Exam: Resting ECG Reason for Exam: chest pain Patient Location: E HR:84 bpm ECG Measurements Heart Rate 84 AXIS MN 152 P -5 QRSd 85 QRS 35 QT 334 T 104 QTc 395 Conclusion Sinus rhythm...normal P axis, V-rate 60- 99 Nonspecific T abnormalities, lateral leads...T <-0.10mV, I aVL V5 V6
--- NOTE | 2021-10-30 20:03 | ED.GENADUL_ITS ---
Discharge Plan Disposition Patient Disposition: HOME Condition: Stable Discharge Details Clinical Impression: Cough, Chest pain, Hypomagnesemia Primary Care Provider: Brittany Hendricks ED Provider: Reji Garcia Home Meds and New Rx's Prescriptions: New benzonatate 200 mg capsule 200 mg PO TID PRNQty: 14 0RF azithromycin 250 mg tablet 250 mg PO DAILY 4 Days Qty: 4 0RF Rx Instructions: start on day 2 of therapy Continued amlodipine 10 mg tablet 10 mg PO DAILY clobetasol 0.05 % solution 1 applic TP DAILY trazodone 100 mg tablet 100 mg PO DAILY ibuprofen 800 mg tablet 800 mg PO TID gabapentin 100 mg Tablet 100 mg PO .QHS atorvastatin 40 mg Tablet 1 mg PO HS aspirin [Aspir-81] 81 mg Tablet,Delayed Release (Dr/Ec) 81 mg PO DAILY Vitamin B-12 50 mcg Tablet 50 mcg PO DAILY tamsulosin [Flomax] 0.4 mg Capsule 0.4 mg PO HS metformin 1,000 mg Tablet 1,000 mg PO BID lisinopril 5 mg Tablet 5 mg PO BID Discharge Instructions Instructions: Hypomagnesemia (ED), Acute Cough (ED) Additional Instructions: follow up with your primary care provider within a week if symptoms are not improving if you feel more ill, have difficulty breathing or severe worsening pain return to the emergency department try to increase your dietary intake of magnesium Medical Decision Making 56 yo male with hx of dm, hld, htn, comes in with cc of cough that is productive for 4 days. He denies fevers, has had some chills. He states his cough was initially dry and is now productive. He states when he coughs he has anterior chest pain. Denies any increased pain with exertion. No back pain or abdomen pain. HE arrives stable speaking in full sentences with intermittent dry cough. He has clear lung sounds, clear rhinorrhea, no abdomen tenderness, no leg swelling or calf tenderness. His symptoms seem infectious in etiology, suspect viral uri vs covid vs influenza. Will obtain fluvid swab and also cxr to evaluate for infiltrate. Has no leg swelling or calf tenderness and no pleuritic chest pain so doubt PE. His pain is primarily with coughing so doubt acs but will obtain ecg and troponin. blood work unremarkable other than hypomagnesemia, xray unremarkable. He is stable and still has room air saturations of 100%. He is stable for d/c, will treat with azithromycin to cover for mycoplasma and tessalon perles. Advised to f/u with pcp and return precautions given Differential Diagnosis Differential Diagnosis: covid, flu, pneumonia Imaging Data Radiologic Study: Attestation: I personally reviewed and interpreted this imaging study as follows: Imaging: X-Ray My impression: no acute findings Lab Data Lab results reviewed: Yes I reviewed the patient's lab results. ECG Data Attestation: I personally reviewed and interpreted this ECG (s) as follows: Prior ECG tracings: not available for review Interpretation: sinus rhythm, rate of 84, no acute st wave ischemic findings HPI General Mode of arrival: ambulatory . Date/Time Provider Initiated Documentation: 10/30/21 19:48 . Limitations to Documentation: no limitations . Information obtained by: patient . History of Present Illness 56 year old M presents to the emergency department with the chief complaint of cough, described as moderate, Patient started experiencing this day(s) (4) and it has been constant. No relieving factors improve symptom(s), No exacerbating factors reported . Patient notes no other symptoms.. Patient did receive the following treatments prior to arrival, none Related Data Home Medications Medication Instructions Recorded Confirmed aspirin 81 mg tablet,delayed 81 mg PO DAILY 07/16/18 10/30/21 release (Aspir-) atorvastatin 40 mg tablet 1 mg PO HS 07/16/18 10/30/21 cyanocobalamin (vitamin B-12) 50 50 mcg PO DAILY 07/16/18 10/30/21 mcg tablet (Vitamin B-12) lisinopril 5 mg tablet 5 mg PO BID 07/16/18 10/30/21 metformin 1,000 mg tablet 1,000 mg PO BID 07/16/18 10/30/21 tamsulosin 0.4 mg capsule (Flomax) 0.4 mg PO HS 07/16/18 07/08/20 amlodipine 10 mg tablet 10 mg PO DAILY 09/14/18 07/08/20 clobetasol 0.05 % scalp solution 1 applic topical DAILY 09/14/18 07/08/20 trazodone 100 mg tablet 100 mg PO DAILY 09/14/18 10/30/21 ibuprofen 800 mg tablet 800 mg PO TID 12/13/18 10/30/21 gabapentin 100 mg tablet 100 mg PO .QHS 07/08/20 10/30/21 azithromycin 250 mg tablet 250 mg PO DAILY 4 days #4 tabs 10/30/21 benzonatate 200 mg capsule 200 mg PO TID PRN #14 caps 10/30/21 Previous Rx's Medication Instructions Recorded azithromycin 250 mg tablet 250 mg PO DAILY 4 days #4 tabs 10/30/21 benzonatate 200 mg capsule 200 mg PO TID PRN #14 caps 10/30/21 Allergies Allergy/AdvReac Type Severity Reaction Status Date / Time atropine [From Simetyl] Allergy Intermediate Psychosis Unverified 10/30/21 19:57 belladonna alkaloids Allergy Intermediate Psychosis Unverified 10/30/21 19:57 [From Simetyl] hyoscyamine [From Simetyl] Allergy Intermediate Psychosis Unverified 10/30/21 19:57 loratadine [From Tavist ND] Allergy Intermediate Psychosis Unverified 10/30/21 19:57 scopolamine [From Simetyl] Allergy Intermediate Psychosis Unverified 10/30/21 19:57 simethicone [From Simetyl] Allergy Intermediate Psychosis Unverified 10/30/21 19:57 clemastine [From Tavist] Allergy Verified 10/30/21 19:57 pseudoephedrine [From Tavist] Allergy Verified 10/30/21 19:57 General Stated Complaint: RespSymp SAUL: 4 Review of Systems All systems reviewed & are unremarkable except as noted in HPI and below Constitutional Constitutional: Denies chills and Denies fever(s) Eyes Eyes: Denies loss of vision ENT Ears, Nose, Mouth, and Throat: Denies change in voice Gastrointestinal Gastrointestinal: Denies abdominal pain, Denies nausea and Denies vomiting Genitourinary Genitourinary: Denies dysuria Musculoskeletal Musculoskeletal: Denies joint swelling Integumentary/Breasts Skin/Breast: Denies rash Neurologic Neurologic: Denies loss of vision PFSH All Active Problems (Updated 10/30/21 @ 21:11 by Reji Garcia MD) Acute conjunctivitis of right eye (Acute) Cough (Acute) Chest pain (Acute) Hypomagnesemia (Acute) Rectal polyp (Acute) Medical History Anisocoria BPH (benign prostatic hyperplasia) Diabetes High cholesterol Hyperlipidemia Major depressive disorder, recurrent episode with anxious distress SLOAN (obstructive sleep apnea) Steatosis of liver Surgical History History of arthroscopic knee surgery History of left knee replacement S/P colonoscopy with polypectomy 01/20/19 Social History Smoking/Tobacco Use Status: Never Smoking risk assessment performed?: Yes Alcohol Intake: current Alcohol Intake frequency: a few times a month Alcohol type: wine and other Drug use: Rarely Substance use type: marijuana Details: alcohol 2 weeks ago marijuana 2 weeks ago vapes Do you feel safe at home: Yes Do you feel safe in your relationship?: Yes Exam Const General: no acute distress Orientation: alert HENMT Head: normal to inspection Ears: external ears normal General nose exam: external nose normal Mouth: moist mucous membranes Eyes General: appearance normal, both eyes and all related structures Neck Neck: normal visual inspection Resp Effort & Inspection: normal respiratory effort, able to speak in complete sentences and no audible wheezes Cardio Rate: regular rate Skin General skin exam: no rashes or lesions noted Neuro General: patient alert and patient oriented x3 Extrem General: normal to inspection Psych Mental Status: mental status grossly normal Course Vital Signs Vital signs: Vital Signs Temperature 36.6 C 10/30/21 19:54 Pulse 95 H 10/30/21 19:54 Respiratory Rate 20 10/30/21 19:54 Blood Pressure 160/90 H 10/30/21 19:54 Pulse Oximetry 99 10/30/21 19:54 Temperature 36.6 C 10/30/21 19:54 Pulse 95 H 10/30/21 19:54 Respiratory Rate 20 10/30/21 19:54 Respiratory Effort Non-Labored 10/30/21 19:58 Blood Pressure 160/90 H 10/30/21 19:54 Blood Pressure Position Sitting 10/30/21 19:54 Pulse Oximetry 99 10/30/21 19:54 Oxygen Delivery Method Room Air 10/30/21 19:54 Oxygen Flow Rate 0 10/30/21 19:54 Pain Level 7 10/30/21 19:54
[2021-10-30 20:37] LABS: Abs Immature Grans 0.02 10^3/uL (0.0-0.06); Absolute Basophil Count 0.06 10^3/uL (0.0-0.2); Absolute Eosinophil Count 0.37 10^3/uL (0.0-0.7); Absolute Lymphocyte Count 1.24 10^3/uL (1.2-3.4); Absolute Monocyte Count 0.72 10^3/uL (0.1-0.8); Basophils % 0.9; Eosinophils % 5.4; HCT 38.2 % (40.0-50.0); HGB 12.8 g/dL (13.5-17.5); Immature Grans % 0.3; Lymphocytes % 18.2; MCH 26.1 pg (27.0-33.0); MCHC 33.5 % (32.0-36.0); MCV 78 fL (80-95); MPV 10.8 fL (8.0-11.0); Monocytes % 10.6; Neutrophils % 64.6; Platelet Count 229 10^3/uL (130-400); RDW 14.5 % (11.8-14.1); RDW-SD 40.9 fL; WBC 6.81 10^3/uL (4.4-10.8)
[2021-10-30 20:54] LABS: ALT 30 U/L (16-63); AST 15 U/L (15-37); Albumin 3.7 g/dL (3.4-5.0); Alkaline Phosphatase 80 U/L (46-116); Anion Gap 10.3 mmol/L (3-11); BUN 12 mg/dL (7-18); Bilirubin, Total 0.5 mg/dL (0.2-1.0); CO2 24.7 mmol/L (21.0-32.0); CREATININE 1.3 mg/dL (0.70-1.30); Calcium 8.5 mg/dL (8.5-10.1); Chloride 101 mmol/L (98-107); Glucose 152 mg/dL (74-106); Magnesium 1.2 mg/dL (1.8-2.4); Potassium 3.8 mmol/L (3.5-5.1); Sodium 136 mmol/L (136-145); Total Protein 6.5 g/dL (6.4-8.2); Troponin I < 50 ng/L (<or=60)
--- NOTE | 2021-10-30 21:00 | DI.VRAD_ITS ---
PROCEDURE INFORMATION: Exam: XR Chest Exam date and time: 10/30/2021 8:16 PM Age: 56 years old Clinical indication: Other: Cough TECHNIQUE: Imaging protocol: Radiologic exam of the chest. Views: 1 view. COMPARISON: CT renal colic wo 07/16/2018 3:36 AM FINDINGS: Lungs: No pulmonary consolidation is seen. Pleural spaces: No pleural effusion or pneumothorax is demonstrated. Heart/Mediastinum: Heart size is normal. Bones/joints: The visualized bony structures appear grossly intact. IMPRESSION: No active disease is seen in the chest. Dictated and Authenticated by: Glynn Ledesma MD. Ordering:ROXANNA Mendoza MD
[2021-10-30 21:14] LABS: COVID-19 PCR Negative (Negative); Influenza A PCR Negative (Negative); Influenza B PCR Negative (Negative); RSV PCR Positive (Negative)
[2021-10-30 21:16] LABS: Source Nasopharynx
[2021-10-30] MEDS: Magnesium Oxide 400 MG TAB PO (21:20)
[2021-10-30] MEDS: Benzonatate 100 MG CAP ×2 (21:21→21:22)
[2021-10-30] MEDS: Azithromycin 250 MG TAB 500 MG PO (21:22)
[2021-10-30] MEDS: Benzonatate 200 MG CAP PO (21:29)
[2021-10-30 21:30] VITALS: BP 148/76; PULSE 77; RESP 16; TEMP 36.8; O2SAT 98
== END 2021-10-30 21:27 | disposition home or self-care (01) ==
PROVIDERS: Emergency Provider Emergency Medicine; PCP Nurse Practitioner Primary Care
DX: B97.4 Respiratory syncytial virus as the cause of diseases classified elsewhere (principal); R07.9 Chest pain, unspecified; E83.42 Hypomagnesemia; I10 Essential (primary) hypertension; E11.9 Type 2 diabetes mellitus without complications; Z79.84 Long term (current) use of oral hypoglycemic drugs; J98.8 Other specified respiratory disorders
CPT/HCPCS: 36415; 80053; 87637; 93005; 99284; 71045; 83735; 84484; 85025; 93010

== ENCOUNTER 2023-12-17 12:56 | Emergency (ER) | payer OTHER, SELFPAY ==
[2023-12-17 12:59] VITALS: BP 172/78; PULSE 81; RESP 16; TEMP 36.8; O2SAT 98
[2023-12-17 13:26] VITALS: BP 172/78; PULSE 81; RESP 16; TEMP 36.8; O2SAT 98
--- NOTE | 2023-12-17 13:30 | DI.RAD_ITS ---
Exam(s) XR TOE RT GREAT EXAM: XR TOE RT GREAT CLINICAL HISTORY: dm with redness and swelling. TECHNIQUE: 2D digital imaging was performed. COMPARISON: No exams were available for comparison FINDINGS: BONES: No acute fracture is present. No bony destructive lesion is seen. JOINTS: No dislocation present. Mild degenerative changes at the interphalangeal joint. SOFT TISSUE: Swelling at distal phalanx of the great toe. No abnormal gas or foreign body. IMPRESSION: Soft tissue swelling. No bony abnormality. DATA REPOSITORY: RADIATION DOSE DELIVERED:
[2023-12-17 14:43] LABS: Abs Immature Grans 0.01 10^3/uL (0.0-0.06); Absolute Basophil Count 0.06 10^3/uL (0.0-0.2); Absolute Eosinophil Count 0.17 10^3/uL (0.0-0.7); Absolute Lymphocyte Count 1.38 10^3/uL (1.2-3.4); Absolute Monocyte Count 0.58 10^3/uL (0.1-0.8); Absolute Neutrophil Count 4.78 10^3/uL (1.2-6.7); Basophils % 0.9 %; Eosinophils % 2.4 %; HCT 38.6 % (40.0-50.0); HGB 11.8 g/dL (13.5-17.5); Immature Grans % 0.1 %; Lymphocytes % 19.8 %; MCH 23.6 pg (27.0-33.0); MCHC 30.6 % (32.0-36.0); MCV 77 fL (80-95); MPV 10.8 fL (8.0-11.0); Monocytes % 8.3 %; Neutrophils % 68.5 %; Platelet Count 238 10^3/uL (130-400); RBC 4.99 10^6/uL (4.36-5.78); RDW 15.9 % (11.8-14.1); RDW-SD 44.5 fL; WBC 6.98 10^3/uL (4.4-10.8)
[2023-12-17 15:01] LABS: Anion Gap 9.5 mmol/L (3-11); BUN 16 mg/dL (7-18); CO2 25.5 mmol/L (21.0-32.0); CREATININE 1.4 mg/dL (0.70-1.30); Calcium 9.2 mg/dL (8.5-10.1); Chloride 103 mmol/L (98-107); Estimated GFR 57.54 (mL/min/1.73m2); Glucose 177 mg/dL (74-106); Potassium 4.5 mmol/L (3.5-5.1); Sodium 138 mmol/L (136-145)
[2023-12-17 15:02] LABS: C-Reactive Protein < 0.50 mg/dL (<or=0.5)
--- NOTE | 2023-12-17 15:34 | W.ED.GENAD ---
Discharge Plan Disposition Patient Disposition: Home Condition: Stable Discharge Details Clinical Impression: Ingrowing toenail Primary Care Provider: Brittany Hendricks ED Provider: Petty Glover Home Meds and New Rx's Prescriptions: Continued amlodipine 10 mg tablet 5 mg PO DAILY clobetasol 0.05 % solution 1 applic TP DAILY trazodone 100 mg tablet 200 mg PO DAILY ibuprofen 800 mg tablet 800 mg PO TID gabapentin 100 mg Tablet 300 mg PO .QHS atorvastatin 40 mg Tablet 40 mg PO HS aspirin [Aspir-81] 81 mg Tablet,Delayed Release (Dr/Ec) 81 mg PO DAILY Vitamin B-12 50 mcg Tablet 500 mcg PO DAILY tamsulosin [Flomax] 0.4 mg Capsule 0.4 mg PO HS metformin 1,000 mg Tablet 1,000 mg PO BID lisinopril 5 mg Tablet 20 mg PO BID benzonatate 200 mg capsule 200 mg PO TID PRNQty: 14 0RF carboxymethylcellulose sodium 0.5 % drops 1 drp ophthalmic (eye) QID PRN Rx Instructions: Instill one drop in both eyes four times a day for dry eye tadalafil 20 mg tablet 20 mg PO ONCE PRN doxycycline hyclate 100 mg capsule 100 mg PO BID Discharge Instructions Instructions: Ingrown Toenail ED Additional Instructions: Please follow-up with the trademark paralegal you have an appointment on Thursday at 8, change dressing and apply the honey mixture Keep clean and dry wash once daily and allowed to air dry as much as possible Please return should you develop spreading redness, fever, worsening pain Tylenol as needed for discomfort Referrals: Fanny Pires DPM [[facility] STAFF PHYSICIAN] - 5 days Discharge Data Discharge Date/Time-TO BE ENTERED AT DEPARTURE: 12/17/23 15:48 HPI General Date/Time Provider Initiated Documentation: 12/17/23 13:21. HPI Narrative: This 58-year-old male presents with report of concern about osteomyelitis in his foot. He has had an ingrown toenail for the past several weeks and completed a course of antibiotics. Denies any fever or chills and otherwise feels quite well. He does not check his blood sugars at home per patient. Related Data Home Medications ?Medication ?Instructions ?Recorded ?Confirmed aspirin 81 mg tablet,delayed 81 mg PO DAILY 07/16/18 12/17/23 release (Aspir-) atorvastatin 40 mg tablet 40 mg PO HS 07/16/18 12/17/23 cyanocobalamin (vitamin B-12) 50 500 mcg PO DAILY 07/16/18 12/17/23 mcg tablet (Vitamin B-12) lisinopril 5 mg tablet 20 mg PO BID 07/16/18 12/17/23 metformin 1,000 mg tablet 1,000 mg PO BID 07/16/18 12/17/23 tamsulosin 0.4 mg capsule (Flomax) 0.4 mg PO HS 07/16/18 12/17/23 amlodipine 10 mg tablet 5 mg PO DAILY 09/14/18 12/17/23 clobetasol 0.05 % scalp solution 1 applic topical DAILY 09/14/18 12/17/23 trazodone 100 mg tablet 200 mg PO DAILY 09/14/18 12/17/23 ibuprofen 800 mg tablet 800 mg PO TID 12/13/18 12/17/23 gabapentin 100 mg tablet 300 mg PO .QHS 07/08/20 12/17/23 benzonatate 200 mg capsule 200 mg PO TID PRN #14 caps 10/30/21 12/17/23 carboxymethylcellulose sodium 0.5 1 drp ophthalmic (eye) QID PRN 12/17/23 12/17/23 % eye drops doxycycline hyclate 100 mg capsule 100 mg PO BID 12/17/23 12/17/23 tadalafil 20 mg tablet 20 mg PO ONCE PRN 12/17/23 12/17/23 Previous Rx's ?Medication ?Instructions ?Recorded benzonatate 200 mg capsule 200 mg PO TID PRN #14 caps 10/30/21 Allergies Allergy/AdvReac Type Severity Reaction Status Date / Time atropine (From Simetyl) Allergy Intermediate Psychosis Unverified 12/17/23 13:05 belladonna alkaloids (From Allergy Intermediate Psychosis Unverified 12/17/23 13:05 Simetyl) hyoscyamine (From Simetyl) Allergy Intermediate Psychosis Unverified 12/17/23 13:05 loratadine (From Tavist ND) Allergy Intermediate Psychosis Unverified 12/17/23 13:05 scopolamine (From Simetyl) Allergy Intermediate Psychosis Unverified 12/17/23 13:05 simethicone (From Simetyl) Allergy Intermediate Psychosis Unverified 12/17/23 13:05 clemastine (From Tavist) Allergy Psychosis Verified 12/17/23 13:05 pseudoephedrine (From Tavist) Allergy Psychosis Verified 12/17/23 13:05 General Stated Complaint: Cellulitis SAUL: 3 Exam Narrative Exam Narrative: 58-year-old male in no acute distress, left great toenail with erythema surrounding. No purulent drainage, no crepitus. Cap refill intact sensation intact Course Vital Signs Vital signs: Vital Signs Temperature 36.8 C 12/17/23 12:59 Pulse 81 12/17/23 12:59 Respiratory Rate 16 12/17/23 12:59 Blood Pressure 172/78 H 12/17/23 12:59 Pulse Oximetry 98 12/17/23 12:59 Temperature 36.8 C 12/17/23 13:26 Pulse 81 12/17/23 13:26 Respiratory Rate 16 12/17/23 13:26 Blood Pressure 172/78 H 12/17/23 13:26 Pulse Oximetry 98 12/17/23 13:26 Oxygen Delivery Method Room Air 12/17/23 13:26 Oxygen Flow Rate 0 12/17/23 13:26 Pain Level 4 12/17/23 13:26 Lab/Test Results Lab/Test Results: Laboratory Tests Range/Units 12/17/23 14:37 WBC (4.4-10.8) 10^3/uL 6.98 RBC (4.36-5.78) 10^6/uL 4.99 Hgb (13.5-17.5) g/dL 11.8 L Hct (40.0-50.0) % 38.6 L MCV (80-95) fL 77 L MCH (27.0-33.0) pg 23.6 L MCHC (32.0-36.0) % 30.6 L RDW (11.8-14.1) % 15.9 H Plt Count (130-400) 10^3/uL 238 MPV (8.0-11.0) fL 10.8 Immature Gran % % 0.1 Neutrophils % % 68.5 Lymphocytes % % 19.8 Monocytes % % 8.3 Eosinophils % % 2.4 Basophils % % 0.9 Nucleated RBC % (0.0-0.3) % 0.0 Absolute Neutrophils (1.2-6.7) 10^3/uL 4.78 Absolute Lymphocytes (1.2-3.4) 10^3/uL 1.38 Absolute Monocytes (0.1-0.8) 10^3/uL 0.58 Absolute Eosinophils (0.0-0.7) 10^3/uL 0.17 Absolute Basophils (0.0-0.2) 10^3/uL 0.06 Sodium (136-145) mmol/L 138 Potassium (3.5-5.1) mmol/L 4.5 Chloride (98-107) mmol/L 103 Carbon Dioxide (21.0-32.0) mmol/L 25.5 Anion Gap (3-11) mmol/L 9.5 BUN (7-18) mg/dL 16 Creatinine (0.70-1.30) mg/dL 1.4 H Est GFR (CKD-EPI 2020) (mL/min/1.73m2) 57.54 Glucose (74-106) mg/dL 177 H Calcium (8.5-10.1) mg/dL 9.2 C-Reactive Protein (<or=0.5) mg/dL < 0.50 Medical Decision Making 58-year-old male presenting with ingrown toenail at the request of his primary care physician for exclusion of osteomyelitis. I did order an x-ray which is not the gold standard test with there is no obvious evidence of osteomyelitis clinically patient does not exhibit signs or symptoms consistent with osteomyelitis and I am not convinced that there is even an infection present. Patient has a blood glucose of 170 the remainder of his labs are within normal limits he has history of baseline chronic kidney disease. I did remove a portion of patient's toenail and he is scheduled for an appointment with podiatry on Thursday. There is no indication for additional antibiotics at this time patient is given low threshold to return with new or worsening complaints Nail removal: I performed a ring block to left great toe with approximately 8 cc of 1% lidocaine without epinephrine, a portion, approximately 1/10 of the great toenail was removed along the fibular aspect and dressing was applied. Patient tolerated procedure without incident. No indication for additional antibiotics, referred to podiatry with an appointment scheduled on Thursday of this week. Return precautions reviewed and patient expressed understanding Quality:SDOH Health Related Social Needs: No Data to Display PFSH All Active Problems (Updated 12/17/23 @ 15:37 by KYLEIGH Hdz) Ingrowing toenail (Acute) Acute conjunctivitis of right eye (Acute) Rectal polyp (Acute) Medical History Anisocoria BPH (benign prostatic hyperplasia) Diabetes High cholesterol Hyperlipidemia Major depressive disorder, recurrent episode with anxious distress SLOAN (obstructive sleep apnea) Steatosis of liver Surgical History History of arthroscopic knee surgery History of left knee replacement S/P colonoscopy with polypectomy 01/20/19 Social History Smoking/Tobacco Use Status: Never Smoking risk assessment performed?: Yes Alcohol Intake: current Alcohol Intake frequency: a few times a month Alcohol type: wine and other Drug use: Rarely Substance use type: marijuana Details: alcohol 2 weeks ago marijuana 2 weeks ago vapes Do you feel safe at home: Yes Do you feel safe in your relationship?: Yes
[2023-12-17] MEDS: Lidocaine 2% Multi-Dose 50 ML VIAL (15:44)
== END 2023-12-17 15:48 | disposition home or self-care (01) ==
PROVIDERS: Emergency Provider Physician Assistant; PCP Nurse Practitioner Primary Care
DX: L60.0 Ingrowing nail (principal)
CPT/HCPCS: 11750; 80048; 99283; 73660; 85025; 86140; J2003

== ENCOUNTER 2024-12-13 08:48 | Day surgery (SDC) | payer OTHER, SELFPAY ==
--- NOTE | 2024-12-12 16:29 | W.PREOPHP ---
Assessment and Plan Assessment and plan (1) Iron (Fe) deficiency anemia: Assessment and plan: We reviewed the plan for a EGD and colonoscopy. Will get a chance to ask any questions. We can proceed with colonoscopy as planned History of Present Illness History of Present Illness Chief Complaint: Anemia Narrative: Benito is 59 years old, and is referred for EGD and colonoscopy for iron deficiency anemia. Benito tells me has been feeling his usual state of health, more than bothered by anything in particular. As he understands, the diagnosis of he was new to him, although there are some labs in the records that indicate at least a microcytic anemia back in 2019, there is no actual mention of the other clinical documentation. Most recently, Benito is undergone 3 infusions of iron. He thinks he might feel a little bit more active and energetic, but is not entirely convinced of that. He denies any dyspepsia, dysphagia, hematemesis, hematochezia, melena, or any other new GI complaints. He denies any known family history of colon or rectal cancers or gastric cancers. There have been no major changes with regards to the interval history since his last visit. PFSH All Active Problems Pain in right foot (Acute) Acute conjunctivitis of right eye (Acute) Rectal polyp (Acute) Medical History DM2 (diabetes mellitus, type 2) HTN (hypertension) Iron (Fe) deficiency anemia Steatosis of liver SLOAN (obstructive sleep apnea) Major depressive disorder, recurrent episode with anxious distress Hyperlipidemia BPH (benign prostatic hyperplasia) Anisocoria High cholesterol Diabetes Surgical History S/P colonoscopy with polypectomy 01/20/19 History of arthroscopic knee surgery History of left knee replacement Social History Smoking/Tobacco Use Status: Never Smoking risk assessment performed?: Yes Alcohol Intake: current Alcohol Intake frequency: a few times a month Alcohol type: wine and other Drug use: Occasionally Substance use type: marijuana Details: edibles Do you feel safe at home: Yes Do you feel safe in your relationship?: Yes Meds Allergies and Home Medications Allergies Allergy/AdvReac Type Severity Reaction Status Date / Time atropine (From Simetyl) Allergy Intermediate Psychosis Verified 12/13/24 09:18 belladonna alkaloids (From Allergy Intermediate Psychosis Verified 12/13/24 09:18 Simetyl) hyoscyamine (From Simetyl) Allergy Intermediate Psychosis Verified 12/13/24 09:18 loratadine (From Tavist ND) Allergy Intermediate Psychosis Verified 12/13/24 09:18 scopolamine (From Simetyl) Allergy Intermediate Psychosis Verified 12/13/24 09:18 simethicone (From Simetyl) Allergy Intermediate Psychosis Verified 12/13/24 09:18 clemastine (From Tavist) Allergy Psychosis Verified 12/13/24 09:18 pseudoephedrine (From Tavist) Allergy Psychosis Verified 12/13/24 09:18 Home Medications ?Medication ?Instructions ?Recorded ?Confirmed ?Type aspirin 81 mg tablet,delayed 81 mg PO DAILY 07/16/18 12/13/24 History release (Aspir-) atorvastatin 40 mg tablet 40 mg PO HS 07/16/18 12/13/24 History cyanocobalamin (vitamin B-12) 50 500 mcg PO DAILY 07/16/18 12/13/24 History mcg tablet (Vitamin B-12) lisinopril 5 mg tablet 20 mg PO BID 07/16/18 12/13/24 History trazodone 100 mg tablet 200 mg PO DAILY 09/14/18 12/13/24 History gabapentin 100 mg tablet 300 mg PO .QHS 07/08/20 12/13/24 History doxycycline hyclate 100 mg capsule 100 mg PO BID 12/17/23 12/13/24 History tadalafil 20 mg tablet 20 mg PO ONCE PRN 12/17/23 12/13/24 History amlodipine 10 mg tablet 10 mg PO DAILY 09/16/24 12/13/24 History diclofenac sodium 3 % topical gel 1 applic topical QID 09/16/24 12/08/24 History folic acid 1 mg tablet 1 mg PO DAILY 09/16/24 12/13/24 History metformin 1,000 mg tablet 500 mg PO BID 09/16/24 12/13/24 History Exam Const General: cooperative, healthy appearing and not in acute distress Neck Neck: normal visual inspection, no lymphadenopathy and supple Thyroid: thyroid normal Resp Effort & Inspection: normal respiratory effort Auscultation: clear to auscultation bilaterally Cardio Jugular venous pressure: no JVD Rate: regular rate Rhythm: regular rhythm Heart Sounds: S1 normal and S2 normal GI Inspection: normal to inspection Palpation: soft, no guarding, no hernias and nontender Percussion: normal to percussion Auscultation: normal bowel sounds Neuro General: patient alert, patient awake and patient oriented x3 Psych Appearance: grossly normal
--- NOTE | 2024-12-12 16:30 | W.PM.DSUDISC ---
Date of service: 12/13/24 Discharge Plan Disposition Patient Disposition: Home Condition: Good Discharge Details Reason For Visit: EGD and colonoscopy Attending Provider: Warren Newsome Primary Care Provider: Brittany Hendricks Home Meds and New Rx's Prescriptions: Continued trazodone 100 mg tablet 200 mg PO DAILY amlodipine 10 mg tablet 10 mg PO DAILY diclofenac sodium 3 % gel 1 applic topical QID metformin 1,000 mg tablet 500 mg PO BID folic acid 1 mg tablet 1 mg PO DAILY gabapentin 100 mg Tablet 300 mg PO .QHS atorvastatin 40 mg Tablet 40 mg PO HS aspirin [Aspir-81] 81 mg Tablet,Delayed Release (Dr/Ec) 81 mg PO DAILY Vitamin B-12 50 mcg Tablet 500 mcg PO DAILY lisinopril 5 mg Tablet 20 mg PO BID tadalafil 20 mg tablet 20 mg PO ONCE PRN doxycycline hyclate 100 mg capsule 100 mg PO BID Patient Comments: pt is weaning off of this med, no use in a week as of 12/08/24 Discontinued bisacodyl [Dulcolax (bisacodyl)] 5 mg tablet,delayed release (DR/EC) 5 mg PO ONCE Qty: 4 0RF Rx Instructions: take per colonoscopy instructions polyethylene glycol 3350 17 gram/dose powder 238 g PO ONCE Qty: 238 0RF Rx Instructions: take per colonoscopy instructions Discharge Instructions Instructions: Colon polyps, Stomach polyps Additional Instructions: Benito, it was good seeing you today, and I hope you make a quick recovery after your procedures. Things went smoothly. With regards to your upper endoscopy, there is a little bit of gastritis, which is inflammation of the lining of the stomach, as well as a small hiatal hernia. This occurs from the top part of your stomach slips above the diaphragm or breathing muscle slightly. I do not think either of these things are anything in particular to worry about. There is also a large gastric polyp which was fairly irritated. I did remove this today. I suspect this is probably the source of your iron deficiency anemia. I will send this to the pathologist for them to review. Until that I have that information, I do not want to do anything else differently. With regards to your colonoscopy, you had 2 small polyps there as well. These were rather bland looking. I did remove both of these, and similar to the mass in your stomach, I will send these to the pathologist as well. All of these results will take about a week or 2 to get back, once I have that information, my office will be in touch with any other recommendations. If you need anything, or have any questions in the meantime, please do not hesitate to ask at any time 1. If tolerated, consume a soft, low fiber diet for 1-2 days. 2[address] Do not drive, drink alcohol, operate machinery, make critical decisions, or do activities that require coordination or balance for 24 hours. 3. Because air was put into your colon during the procedure, expelling air from your rectum (passing gas or farting) is normal. 4. You may not have a bowel movement for 1-3 days because of the colonoscopy prep. This is normal. 5. You may experience a sore throat for 24 to 48 hours. You may use throat lozenges or gargle with warm salt water to relieve the discomfort. 6. Because air was put into your stomach during the procedure, you may experience some belching. 7. Go directly to the emergency room if you notice any of the following: Develop chills (warm to touch), or if you have a thermometer and your temperature is above 101 Difficulty breathing or difficultly swallowing Persistent vomiting Severe abdominal pain, other than gas cramps Severe chest pain Black, tarry stools Any bleeding ? exceeding one tablespoon 8. Call your physician if the site where your intravenous was started becomes red, swollen, painful, and warm to touch. 9. Your physician has reviewed your pre-procedure medications. Please continue to take those medications as previously ordered. You will be given specific information/education regarding any changes to your medications before leaving. Activity:: Activity as Tolerated Diet:: As Tolerated DS: Diagnosis Discharge Diagnosis (1) Iron (Fe) deficiency anemia: Asessment and Plan: Follow-up on polypectomy results
--- NOTE | 2024-12-12 16:31 | W.PM.ENDDOP ---
Date of service: 12/13/24 Time of Service: 13:15 Endoscopy Report DATE OF PROCEDURE: 12/13/24 PRE-OP DIAGNOSIS: Iron deficiency anemia POST-OP DIAGNOSIS: other (Gastritis, grade 2 hiatal hernia, large gastric polyp; colon polyps) PROCEDURE: EGD and colonoscopy SURGEON: Warren Newsome ANESTHESIA TYPE: General:No Airway ESTIMATED BLOOD LOSS: 10 PATHOLOGY: other (Gastric polyp, biopsies of gastric antrum and body; 0.5 cm flat colon polyp at 100 cm, 0.25 cm flat colon polyp at 65 cm) COMPLICATIONS: None DISPOSITION: same day INDICATIONS: Benito is a 59-year-old male with a new diagnosis of iron deficiency anemia PREP: Miralax/Dulcolax PROCEDURE START TIME: 12:15 PROCEDURE END TIME: 12:41 COLONOSCOPY RETRACTION TIME: 9 PROCEDURE DESCRIPTION: After the initiation of anesthesia, and with the assistance of a bite block, I advanced a standard gastroscope through the mouth past the hypopharynx and into the esophagus.? Under the direct vision of the scope, I advanced down the esophagus towards the stomach. The upper, mid, and lower esophagus were normal in course and caliber. I saw no evidence of any diverticula. There was no evidence of any esophagitis. The GE junction and Z-line were regular at 40 cm beyond the incisors. There is a small amount of gastritis up at the gastric hiatus that I suspect may be related to a hiatal hernia that is obvious on retroflexion. I would estimate this to be a grade 2 hiatal hernia. Along the incisure angularis at the posterior wall is a large gastric polyp. Mucosa is friable and irritated appearing. This was removed with a energize snare polypectomy at a narrow stalk. The specimen was captured in a specimen bag and removed. The camera was reintroduced and the site was examined. It was hemostatic. I advanced down across the pylorus into the duodenum which was all normal and healthy appearing. I then brought the camera back into the stomach and perform some cold forceps biopsies of the gastric antrum and body to rule out H. pylori. There was minimal bleeding from the biopsy sites. The stomach was then emptied and the camera was removed along the length of the esophagus. No other abnormalities were appreciated. Benito was then rolled into the left lateral decubitus position.? External anorectal exam was normal. Next, I performed a digital rectal exam.? There are palpable fibroepithelial polyps.? Next, I advanced a colonoscope into the rectal vault.? I performed retroflexion.? The aforementioned polyps were visualized. They do not appear pathologic..? Using insufflation, I then advanced the colonoscope beyond the rectal folds and into the sigmoid colon before advancing towards the cecum.? The scope was noted to be in the cecum by identification of the ileocecal valve and appendiceal orifice.? I then began withdrawing the colonoscope using repeated irrigation as necessary for full evaluation of the colonic mucosa. Around 100 cm from the anal verge is a 0.5 cm mostly flat polyp. This was removed with cold snare polypectomy. Excision was complete, and the specimen was retrieved. There was minimal bleeding. Another polyp was found at 65 cm beyond the anus. This was much smaller. Is less than 0.25 cm and flat. This was also removed with cold snare polypectomy without any significant bleeding. ?Once the scope was withdrawn to the level of the rectum, great care was taken to examine portions of the rectal folds.? Finally, the scope was withdrawn and the patient was brought to the same-day surgery recovery unit as the anesthetic wore off. ?The findings and instructions were shared with the patient prior to discharge. The Parthenon bowel prep score from right to left was 2, 3, 3
[2024-12-13 09:19] VITALS: BP 138/85; PULSE 59; RESP 16; TEMP 36.6; O2SAT 100
[2024-12-13] MEDS: Lactated Ringers 1,000 ML 80 ML IV (09:33)
--- NOTE | 2024-12-13 10:35 | W.ANESPRE ---
General Info Date of Service Date Performed: 12/13/24 Height: 5 ft 8 in Weight: 104.8 kg Body Mass Index (BMI): 35.1 Surgical Procedure: Operation Date: 12/13/24 09:50 Proposed Procedure Side Surgeon p Colonoscopy/Gastroscopy Warren Newsome MD Meds Allergies and Home Medications Allergies Allergy/AdvReac Type Severity Reaction Status Date / Time atropine (From Simetyl) Allergy Intermediate Psychosis Verified 12/13/24 09:18 belladonna alkaloids (From Allergy Intermediate Psychosis Verified 12/13/24 09:18 Simetyl) hyoscyamine (From Simetyl) Allergy Intermediate Psychosis Verified 12/13/24 09:18 loratadine (From Tavist ND) Allergy Intermediate Psychosis Verified 12/13/24 09:18 scopolamine (From Simetyl) Allergy Intermediate Psychosis Verified 12/13/24 09:18 simethicone (From Simetyl) Allergy Intermediate Psychosis Verified 12/13/24 09:18 clemastine (From Tavist) Allergy Psychosis Verified 12/13/24 09:18 pseudoephedrine (From Tavist) Allergy Psychosis Verified 12/13/24 09:18 Home Medication ?Medication ?Instructions ?Recorded aspirin 81 mg tablet,delayed 81 mg PO DAILY 07/16/18 release (Aspir-) atorvastatin 40 mg tablet 40 mg PO HS 07/16/18 cyanocobalamin (vitamin B-12) 50 500 mcg PO DAILY 07/16/18 mcg tablet (Vitamin B-12) lisinopril 5 mg tablet 20 mg PO BID 07/16/18 trazodone 100 mg tablet 200 mg PO DAILY 09/14/18 gabapentin 100 mg tablet 300 mg PO .QHS 07/08/20 doxycycline hyclate 100 mg capsule 100 mg PO BID 12/17/23 tadalafil 20 mg tablet 20 mg PO ONCE PRN 12/17/23 amlodipine 10 mg tablet 10 mg PO DAILY 09/16/24 diclofenac sodium 3 % topical gel 1 applic topical QID 09/16/24 folic acid 1 mg tablet 1 mg PO DAILY 09/16/24 metformin 1,000 mg tablet 500 mg PO BID 09/16/24 Current Visit Medications: Current Medications Generic Name Dose Route Start Last Admin Trade Name Freq PRN Reason Stop Dose Admin Ringer's Solution 1,000 mls @ 80 mls/hr 12/13/24 06:00 12/13/24 09:33 IV 12/13/24 23:59 80 mls/hr INFUSION YANETH Administration IV Miscellaneous Supplies 1 each 12/13/24 06:00 Iv Access IV 12/13/24 23:59 DIRECTED YANETH Sodium Chloride 0 ml 12/13/24 06:00 Normal Saline Flush 10 Ml Syr IV 12/13/24 23:59 PRN PRN Sodium Chloride 0 ml 12/13/24 06:00 Normal Saline 10 Ml Vial IJ 12/13/24 23:59 DIRECTED PRN Sterile Water 0 ml 12/13/24 06:00 Water,Injection,Sterile 10 Ml Vial IJ 12/13/24 23:59 DIRECTED PRN PFSH Active Problems Active Problems: Problem Status Onset Code Pain in right foot Acute M79.671 Acute conjunctivitis of right eye Acute H10.31 Rectal polyp Acute K62.1 Medical History Medical History DM2 (diabetes mellitus, type 2) HTN (hypertension) Iron (Fe) deficiency anemia Steatosis of liver SLOAN (obstructive sleep apnea) Major depressive disorder, recurrent episode with anxious distress Hyperlipidemia BPH (benign prostatic hyperplasia) Anisocoria High cholesterol Diabetes Surgical History Surgical History S/P colonoscopy with polypectomy 01/20/19 History of arthroscopic knee surgery History of left knee replacement Tobacco Smoking/Tobacco Use Status: Never Alcohol Alcohol Intake: current Alcohol intake frequency: a few times a month Alcohol type: wine and other Substance Use Substance use: Occasionally Substance use type: marijuana Details: edibles Vital Signs and Lab Results Vital Signs Most Recent Vital Signs in EMR: Most Recent Vital Signs Temp Pulse Resp BP Pulse Ox 36.6 C 59 L 16 138/85 100 12/13/24 09:19 12/13/24 09:19 12/13/24 09:19 12/13/24 09:19 12/13/24 09:19 Point of Care Results Point of Care Results: Finger Stick Blood Glucose 111 12/13/24 09:03 Anesthesia Assessment and Plan Anesthesia History Personal History: No History of Anesthesia Complications Family History: No Family History of Anesthesia Complications Exercise Tolerance Exercise Tolerance: Metabolic Equivalents>4 Pertinent Negatives Pertinent Negatives: No Symptoms of GERD Cardiac & Pulmonary Exam Cardiac Exam: Normal S1/S2 Heart Sounds Pulmonary Exam: Clear Bilateral Breath Sounds Implantable Cardiac Device Does patient have a Pacemaker or an ICD?: No Airway Exam Known Difficult Airway: No Mallampati Class: 2 Mouth Opening: Normal (> 3cm) Thyromental Distance: Greater than 3 cm Facial Hair: Full Broussard Neck Range of Motion: Full ROM Neck Circumference: Normal Teeth Condition: Normal Dentition ASA Classification ASA Score: ASA 2 Emergency Case?: No NPO Status NPO Status: NPO Clears >2 hours, Solids >8 hours Anesthesia Plan Resuscitation Status: Full Code Anesthesia Technique: General Anesthesia Airway Planned: Natural Airway Monitors Used: Standard Monitors
[2024-12-13 10:37] VITALS: BMI 35.1
--- NOTE | 2024-12-13 12:21 | BOWEL_PTH ---
PATIENT: Richard Benoit LOC: [facility] U#:[id number] AGE/SX: 59/M ROOM: RE12/13/[address]: Warren Newsome MD : [id number] BED: DIS: 12/13/2024 SPEC #: [id number] RECD: 12/13/24 13:15 STATUS: LUCIANA RE #: [id number] MAT: 12/13/24 12:[address]: Warren Newsome DEPT: Surgical Specimen RECD BY: Petty Lorenzo ENTERED: 12/13/24 13:17 SP TYPE: Bowel OTHR DR: Brittany Hendricks Tissues: 1 - STOMACH BIOPSY 2 - STOMACH BIOPSY 3 - STOMACH BIOPSY 4 - BIOPSY BOWEL 5 - BIOPSY BOWEL Procedures: GROSS AND MICRO LEVEL 4 IMMUNOPEROXIDASE STAIN Comments: [id number]
[2024-12-13 12:52] VITALS: BP 135/83; PULSE 75; RESP 17; TEMP 36.4; O2SAT 98
--- NOTE | 2024-12-13 13:08 | W.ANESPOSTOP ---
Postoperative Evaluation Date, Time and Location Date Performed: 12/13/24 Time Performed: 13:08 Patient Location: Day Surgery Unit Vital Signs Most Recent Imported Vital Signs: Most Recent Vital Signs Temp Pulse Resp BP Pulse Ox 36.4 C L 75 17 135/83 98 12/13/24 12:52 12/13/24 12:52 12/13/24 12:52 12/13/24 12:52 12/13/24 12:52 Pain Score Most Recent Pain Score: Most Recent Pain Score Pain Level 0 12/13/24 12:52 Assessment Mental Status: Awake (Alert & Oriented to Patient Baseline) Airway and Respiratory Function: Patent airway with normal (patient baseline) respiratory exam Cardiovascular Function: Hemodynamically Stable Hydration Status: Adequately Hydrated Nausea & Vomiting: No Nausea or Vomiting Pain: Pt. Denies Any Pain Peripheral Nerve Block: Patient did not receive a nerve block
[2024-12-13 13:30] VITALS: BP 145/77; PULSE 61; RESP 16; TEMP 36.2; O2SAT 96
== END 2024-12-13 13:50 | disposition home or self-care (01) ==
PROVIDERS: PCP Nurse Practitioner Primary Care; Visit Provider Surgery
PROC: (CPT 43251; principal; 2024-12-13 09:45)
DX: D50.9 Iron deficiency anemia, unspecified (principal); K29.70 Gastritis, unspecified, without bleeding; K44.9 Diaphragmatic hernia without obstruction or gangrene; K31.7 Polyp of stomach and duodenum; D12.3 Benign neoplasm of transverse colon; D12.4 Benign neoplasm of descending colon
CPT/HCPCS: 43251; 45385; 88305; 88361; J2003; J2704